=== PATIENT | female | born 1970 | race Caucasian/White ===

== ENCOUNTER 2018-05-23 17:46 | Outpatient (REF) | payer BC, SELFPAY ==
--- NOTE | 2018-05-23 16:50 | PAPFT_PTH ---
PATIENT: Mari Gomez LOC: [facility] U#:[id number] AGE/SX: 48/F ROOM: RE05/23/[address]: Angel Comer V : 1970 BED: DIS: 05/23/2018 SPEC #: [id number] RECD: 05/23/18 18:17 STATUS: LUIS DANIEL REQ #: [id number] MAREK: 05/23/18 16:[address]: Angel Comer V DEPT: [facility] Cytology RECD BY: Yisel Stallworth ENTERED: 05/23/18 18:18 SP TYPE: PAPFT OTHR DR: Vivek Holden Tissues: 1 - CX/ENDOCX FOR PAP SMEARS Procedures: PAP THIN PREP/[facility] Screening HPV DNA PROBE Comments: [id number]
[2018-05-23 19:06] LABS: Anion Gap 6.9 mmol/L (3-11); BUN 13 mg/dL (7-18); CO2 31.1 mmol/L (21.0-32.0); CREATININE 0.82 mg/dL (0.55-1.02); Calcium 9.3 mg/dL (8.5-10.1); Chloride 100 mmol/L (98-107); Glucose 88 mg/dL (70-100); Potassium 3.7 mmol/L (3.5-5.1); Sodium 138 mmol/L (136-145); TSH 2.76 uIU/mL (0.358-3.74)
== END 2018-05-23 18:06 ==
LOC: NCHCN 17:46
PROVIDERS: PCP Physician Assistant; Visit Provider Physician Assistant Medical
DX: Z00.00 Encounter for general adult medical examination without abnormal findings (principal); I10 Essential (primary) hypertension; E03.9 Hypothyroidism, unspecified; Z12.4 Encounter for screening for malignant neoplasm of cervix; Z01.419 Encounter for gynecological examination (general) (routine) without abnormal findings
CPT/HCPCS: 80048; 88142; 84443; 87624

== ENCOUNTER 2019-04-21 16:46 | Outpatient (REF) | payer BC, SELFPAY ==
[2019-04-21 18:59] LABS: HCT 37.7 % (36.0-46.0); HGB 12.7 g/dL (12.0-15.5); Mean Corp. HGB Concentration 33.7 g/dL (32.0-36.0); Mean Corpuscular Hemoglobin 30.1 pg (27.0-33.0); Mean Corpuscular Volume 89.3 fL (80-95); Mean Platelet Volume 9.6 fL (8.0-11.0); Platelet Count 331 x1000/uL (130-400); RBC 4.22 m/cumm (4.00-5.20); RBC Distribution Width 13.7 % (11.7-14.6); White Blood Cell Count 7.18 k/cumm (4.4-10.8)
[2019-04-21 19:49] LABS: Anion Gap 9.7 mmol/L (3-11); BUN 13 mg/dL (7-18); CO2 28.3 mmol/L (21.0-32.0); CREATININE 0.83 mg/dL (0.55-1.02); Calcium 9.1 mg/dL (8.5-10.1); Chloride 101 mmol/L (98-107); Glucose 96 mg/dL (70-100); LDL CHOLESTEROL 128 mg/dL (<100); Potassium 3.3 mmol/L (3.5-5.1); Sodium 139 mmol/L (136-145); TSH 1.13 uIU/mL (0.36-3.74)
== END 2019-04-21 17:06 ==
LOC: NCHCN 16:46
PROVIDERS: PCP Physician Assistant; Visit Provider Internal Medicine
DX: K64.9 Unspecified hemorrhoids (principal); I10 Essential (primary) hypertension; E03.9 Hypothyroidism, unspecified
CPT/HCPCS: 80048; 83721; 85027; 84443

== ENCOUNTER 2020-01-26 22:03 | Outpatient (REF) | payer BC, SELFPAY ==
[2020-01-26 19:27] LABS: ALT 27 U/L (14-59); AST 15 U/L (15-37); Albumin 3.9 g/dL (3.4-5.0); Alkaline Phosphatase 62 U/L (46-116); Anion Gap 11.3 mmol/L (3-11); BUN 14 mg/dL (7-18); Bilirubin, Total 0.3 mg/dL (0.2-1.0); CO2 26.7 mmol/L (21.0-32.0); CREATININE 0.88 mg/dL (0.55-1.02); Calcium 9.5 mg/dL (8.5-10.1); Chloride 101 mmol/L (98-107); Glucose 93 mg/dL (74-106); Potassium 4.1 mmol/L (3.5-5.1); Sodium 139 mmol/L (136-145); TSH (W/Ref FT4) 1.83 uIU/mL (0.36-3.74); Total Protein 7.5 g/dL (6.4-8.2)
== END 2020-01-26 22:23 ==
LOC: NCHCN 22:03
PROVIDERS: PCP Physician Assistant; Visit Provider Physician Assistant
DX: E03.9 Hypothyroidism, unspecified (principal); I11.0 Hypertensive heart disease with heart failure
CPT/HCPCS: 80053; 84443

== ENCOUNTER 2020-08-30 15:15 | Outpatient (REF) | payer BC, SELFPAY ==
[2020-08-30 19:10] LABS: Anion Gap 5.6 mmol/L (3-11); BUN 19 mg/dL (7-18); CO2 28.4 mmol/L (21.0-32.0); CREATININE 0.9 mg/dL (0.55-1.02); Calcium 9.2 mg/dL (8.5-10.1); Chloride 99 mmol/L (98-107); Glucose 89 mg/dL (74-106); LDL CHOLESTEROL 115 mg/dL (<100); Sodium 133 mmol/L (136-145)
== END 2020-08-30 15:16 | disposition home or self-care (01) ==
LOC: NCHCN 15:15
PROVIDERS: PCP Physician Assistant; Visit Provider Physician Assistant
DX: I10 Essential (primary) hypertension (principal); E03.9 Hypothyroidism, unspecified
CPT/HCPCS: 80048; 83721

== ENCOUNTER 2020-10-10 13:13 | Outpatient (REF) | payer BC, SELFPAY ==
[2020-10-11 01:05] LABS: COVID-19 RT-PCR UVMMC Result Negative (Negative)
== END 2020-10-10 13:14 | disposition home or self-care (01) ==
LOC: NCHCN 13:13
PROVIDERS: PCP Physician Assistant; Visit Provider Physician Assistant
DX: Z20.822 Contact with and (suspected) exposure to COVID-19 (principal)
CPT/HCPCS: U0003

== ENCOUNTER 2020-10-17 15:37 | Outpatient (REF) | payer BC, SELFPAY ==
[2020-10-18 10:38] LABS: COVID-19 RT-PCR UVMMC Result Negative (Negative)
== END 2020-10-17 15:38 | disposition home or self-care (01) ==
LOC: NCHCN 15:37
PROVIDERS: PCP Physician Assistant; Visit Provider Physician Assistant
DX: Z20.822 Contact with and (suspected) exposure to COVID-19 (principal)
CPT/HCPCS: U0003

== ENCOUNTER 2021-07-28 10:31 | Outpatient (REF) | payer BC, SELFPAY ==
--- OUTSIDE RECORDS SUMMARY | 2021-07-28 10:34 | XMS_ITS ---
:1970 Author Care Team Providers Name Role Phone ANNA MARIE SALDIVAR General Surgeon [phone] ANDREINA KAUR MD Primary Care Provider [phone] RAIZA (GURVINDER) NOEMI Supervisor [employer] [phone] Allergies Code Code System Name Reaction Severity Status Onset Bee Venom Edema ? Active ? Protein (Honey Bee) 5933 RxNorm Iodine Edema ? Active ? 792881 RxNorm Shrimp Itching ? Active ? Medications Name Status Start Date Stop Date ? ? aspirin 81 mg tablet,delayed release Active ? Not available Take 1 tablet every day by oral route. EpiPen 2-Keith 0.3 mg/0.3 mL injection, auto-injector Active ? Not available INJECT 0.3 MILLILITER (0.3 MG) BY INTRA MUSCULAR ROUTE ONCE NEEDED FOR ANAPHYLAXIS L-Thyroxine Sodium 112 mcg tablet Active ? Not available Take 1 tablet every day by oral route. lisinopril 20 mg-hydrochlorothiazide 12.5 mg tablet Active ? Not available Take 1 tablet every day by oral route. naproxen 375 mg tablet Active ? Not avail able Take 1 tablet twice a day by oral route as needed. omeprazole 20 mg tablet,delayed release Active ? Not available Take by oral route. spironolactone 25 mg tablet Active ? Not available Take 1 tablet every day by oral route. Problems Name Status Onset Date Source ? Hypothyroidism Active 05/01/2019 ? Carpal Tunnel Syndrome Active 05/01/2019 ? Hypertensive Disorder Active 05/01/2019 ? Hemorrhoids Active 05/01/2019 ? Pain in Right Hip Joint Active 05/01/2019 ? Procedures Date Name Performed by ? 07/20/2019 Colonoscopy Information not avai lable Notes: diverticulosis, rectal polyps, internal hemorrhoids 08/24/2008 Carpal Tunnel Surgery Information not av ailable Notes: bilateral 07/05/1999 Section Information not avai lable Results Lab Results Date Name Specimen Result Interpretation Description Value Range Status Address ? 07/20/2019 Pathology TISS - Report (see ? Final No rth Country Study below) [facility] ab (Internal) : [address] Past Encounters 12/31/2020 Tear of Medial Meniscus of Knee Sophie Malone, PT: [address] [place], [facility] [address], [place] [address], Ph. 12/19/2020 Taye Storey MD: [address] [facility] [address] [address], [place] [address], Ph. 12/12/2020 Tear of Medial Meniscus of Knee Sophie Faisal, PT: [address] [place], [facility] [address], [place] [address], Ph. 11/27/2020 Tear of Medial Meniscus of Knee Bishop Hagan, PT: [address] [address], [place] [address], Ph. 11/21/2020 Taye Storey MD: [address] [facility], [address] [address], [place] [address], Ph. Social History Tobacco Smoking Status Never Smoker Vaccine List Vaccine Type COVID-19, mRNA, LNP-S, PF, 100 mcg/0.5 m L dose (Moderna) 11/13/2020?100 mcg 12/09/2020?100 mcg Plan of Care Reminders Provider Appointments None ? ? recorded. Lab None ? ? recorded. Referral None ? ? recorded. Procedures None ? ? recorded. Surgeries None ? ? recorded. Imaging None ? ? recorded. Vitals 11/21/2020 09:15AM Consult 30 Height Weight BMI 157.48 cm 104.96 kg 42.3 kg/m2 04/21/2019 Height Weight BMI Blood Pressure 156.21 cm 99.11 kg 40.6 kg/m2 154/76 mm[Hg]
[2021-07-29 20:34] LABS: COVID-19 RT-PCR UVMMC Result Negative (Negative)
== END 2021-07-28 10:32 | disposition home or self-care (01) ==
LOC: NCHCN 10:31
PROVIDERS: PCP Physician Assistant; Visit Provider Physician Assistant
DX: Z20.822 Contact with and (suspected) exposure to COVID-19 (principal)
CPT/HCPCS: U0003

== ENCOUNTER 2021-10-29 18:36 | Outpatient (REF) | payer BC, SELFPAY ==
[2021-10-29 20:23] LABS: Abs Immature Grans 0.01 10^3/uL (0.0-0.06); Absolute Basophil Count 0.04 10^3/uL (0.0-0.2); Absolute Eosinophil Count 0.28 10^3/uL (0.0-0.7); Absolute Lymphocyte Count 1.89 10^3/uL (1.2-3.4); Absolute Monocyte Count 0.56 10^3/uL (0.1-0.8); Absolute Neutrophil Count 3.88 10^3/uL (1.2-6.7); Basophils % 0.6; Eosinophils % 4.2; HCT 35.9 % (36.0-46.0); HGB 10.8 g/dL (11.2-15.7); Immature Grans % 0.2; Lymphocytes % 28.4; MCH 24.8 pg (27.0-33.0); MCHC 30.1 % (32.0-36.0); MCV 82.5 fL (80-95); MPV 9.3 fL (8.0-11.0); Monocytes % 8.4; Neutrophils % 58.2; Platelet Count 400 10^3/uL (130-400); RBC 4.35 10^6/uL (3.93-5.22); RDW 15.9 % (11.7-14.6); RDW-SD 48.3 fL; WBC 6.66 10^3/uL (4.4-10.8)
[2021-10-29 20:49] LABS: Iron 26 ug/dL (50-170); Total Iron Binding Capacity 411 ug/dL (250-450); Transferrin Sat 6 % (15-50)
[2021-10-29 21:59] LABS: Anion Gap 8.6 mmol/L (3-11); BUN 18 mg/dL (7-18); CO2 27.4 mmol/L (21.0-32.0); CREATININE 0.8 mg/dL (0.55-1.02); Calcium 9.3 mg/dL (8.5-10.1); Chloride 102 mmol/L (98-107); Ferritin 11 ng/mL (8-252); Glucose 94 mg/dL (74-106); Magnesium 2.2 mg/dL (1.8-2.4); Sodium 138 mmol/L (136-145); TSH (W/Ref FT4) 2.96 uIU/mL (0.36-3.74)
== END 2021-10-29 18:37 | disposition home or self-care (01) ==
LOC: NCHCN 18:36
PROVIDERS: PCP Physician Assistant; Visit Provider Physician Assistant
DX: I10 Essential (primary) hypertension (principal); E03.9 Hypothyroidism, unspecified; G25.81 Restless legs syndrome
CPT/HCPCS: 80048; 82728; 83540; 83550; 83735; 84443; 85025

== ENCOUNTER 2022-07-31 14:32 | Outpatient (REF) | payer BC, SELFPAY ==
[2022-07-31 19:33] LABS: Hemoglobin A1C 6.2 % (<5.7)
[2022-07-31 19:35] LABS: ALT 63 U/L (14-59); AST 34 U/L (15-37); Alkaline Phosphatase 84 U/L (46-116); Anion Gap 5.2 mmol/L (3-11); BUN 16 mg/dL (7-18); Bilirubin, Total 0.3 mg/dL (0.2-1.0); CO2 31.8 mmol/L (21.0-32.0); CREATININE 0.9 mg/dL (0.55-1.02); Calcium 9.4 mg/dL (8.5-10.1); Chloride 102 mmol/L (98-107); Estimated GFR 76.44 (mL/min/1.73m2); Glucose 104 mg/dL (74-106); Potassium 3.7 mmol/L (3.5-5.1); Sodium 139 mmol/L (136-145); TSH 1.44 uIU/mL (0.36-3.74); Total Protein 8.1 g/dL (6.4-8.2)
== END 2022-07-31 14:33 | disposition home or self-care (01) ==
LOC: NCHCN 14:32
PROVIDERS: PCP Physician Assistant; Visit Provider Physician Assistant
DX: I10 Essential (primary) hypertension (principal); E03.9 Hypothyroidism, unspecified; Z13.1 Encounter for screening for diabetes mellitus; Z83.3 Family history of diabetes mellitus
CPT/HCPCS: 80053; 83036; 84443

== ENCOUNTER 2023-01-29 13:44 | Outpatient (REF) | payer BC, SELFPAY ==
--- NOTE | 2023-01-29 13:30 | PAPFT_PTH ---
PATIENT: Mari Gomez LOC: [facility]#:[id number] AGE/SX: 52/F ROOM: RE01/29/[address]: Amy Burrell : 1970 BED: DIS: 01/29/2023 SPEC #: [id number] RECD: 02/01/23 13:06 STATUS: LUIS DANIEL SAWYER #: [id number] MAREK: 01/29/23 13:[address]: Amy Burrell DEPT: [facility] Cytology RECD BY: Yisel Stallworth Tissues: 1 - CX/ENDOCX FOR PAP SMEARS Procedures: PAP THIN PREP/[facility] Screening HPV DNA PROBE Comments: [id number]
== END 2023-01-29 13:45 | disposition home or self-care (01) ==
LOC: NCHCN 13:44
PROVIDERS: PCP Physician Assistant; Visit Provider Physician Assistant
DX: Z12.4 Encounter for screening for malignant neoplasm of cervix (principal); Z11.51 Encounter for screening for human papillomavirus (HPV)
CPT/HCPCS: 88142; 87624

== ENCOUNTER 2023-09-17 14:08 | Outpatient (REF) | payer BC, SELFPAY ==
[2023-09-17 19:08] LABS: Abs Immature Grans 0.02 10^3/uL (0.0-0.06); Absolute Basophil Count 0.04 10^3/uL (0.0-0.2); Absolute Eosinophil Count 0.29 10^3/uL (0.0-0.7); Absolute Lymphocyte Count 2.24 10^3/uL (1.2-3.4); Absolute Monocyte Count 0.47 10^3/uL (0.1-0.8); Absolute Neutrophil Count 4.13 10^3/uL (1.2-6.7); Basophils % 0.6; HCT 34.3 % (36.0-46.0); HGB 11.5 g/dL (11.2-15.7); Immature Grans % 0.3; Lymphocytes % 31.2; MCH 28.4 pg (27.0-33.0); MCHC 33.5 % (32.0-36.0); MCV 85 fL (80-95); MPV 9.2 fL (8.0-11.0); Monocytes % 6.5; Neutrophils % 57.4; Platelet Count 369 10^3/uL (130-400); RBC 4.05 10^6/uL (3.93-5.22); RDW 13.4 % (11.7-14.6); RDW-SD 41.7 fL; WBC 7.19 10^3/uL (4.4-10.8)
[2023-09-17 19:30] LABS: ALT 27 U/L (14-59); AST 18 U/L (15-37); Albumin 3.7 g/dL (3.4-5.0); Alkaline Phosphatase 73 U/L (46-116); BUN 24 mg/dL (7-18); Bilirubin, Total 0.3 mg/dL (0.2-1.0); CREATININE 0.9 mg/dL (0.55-1.02); Calcium 8.9 mg/dL (8.5-10.1); Chloride 98 mmol/L (98-107); Estimated GFR 75.97 (mL/min/1.73m2); Glucose 96 mg/dL (74-106); Potassium 3.7 mmol/L (3.5-5.1); Sodium 135 mmol/L (136-145); Total Protein 7.6 g/dL (6.4-8.2)
== END 2023-09-17 14:09 | disposition home or self-care (01) ==
LOC: NCHCN 14:08
PROVIDERS: PCP Physician Assistant; Visit Provider Physician Assistant
DX: I10 Essential (primary) hypertension (principal); E03.9 Hypothyroidism, unspecified
CPT/HCPCS: 80053; 84443; 85025

== ENCOUNTER 2024-11-01 15:17 | Outpatient (REF) | payer BC, SELFPAY ==
[2024-11-01 20:20] LABS: Bilirubin Negative (Negative); Blood Small (Negative); Clarity Clear (Clear); Glucose Negative (Negative); Ketones Negative (Negative); Leukocyte Esterase Negative (Negative); Nitrite Negative (Negative); Urobilinogen 0.2 mg/dL (Up to 0.2)
[2024-11-01 20:30] LABS: Bacteria Few HPF (Negative); C & S Indicated? No; Casts Negative LPF (Negative); Crystals Negative HPF (Negative); Epithelial Cells Few HPF (Negative); Mucus Negative (Negative); WBC 0-2 HPF (0-5)
== END 2024-11-01 15:18 | disposition home or self-care (01) ==
LOC: NCHCN 15:17
PROVIDERS: PCP Physician Assistant; Visit Provider Nurse Practitioner Family
DX: R31.9 Hematuria, unspecified (principal)
CPT/HCPCS: 81003; 81015